=== PATIENT | male | born 1965 | race Caucasian/White ===

== ENCOUNTER 2020-09-22 08:01 | Day surgery (SDC) | payer OTHER ==
[2020-09-19 09:51] VITALS: BMI 34.2
[~2020-09-22 08:01] MED LIST: LACTATED RINGERS 1,000 ML IV SCH
[2020-09-22 08:21] VITALS: TEMP 97.7
[2020-09-22] MEDS ORDERED: PROPOFOL 10 MG/ML 20 ML VIAL IV ONE (09:09)
--- NOTE | 2020-09-22 09:42 | P.PCN ---
Date of Procedure: 09/22/20 Description of Procedure: BRIEF HISTORY: Patient is a 55-year-old male presenting for outpatient colonoscopy for a history of colon polyps. No family history of colon cancer. Last colonoscopy years ago. No change in bowel habits or blood per rectum. PROCEDURE PERFORMED: Colonoscopy with polypectomy. PREOPERATIVE DIAGNOSIS: Personal history of colon polyps, last colonoscopy 5 years ago. ESTIMATED BLOOD LOSS: Minimal. IV sedation per Anesthesia. PROCEDURE: After informed consent was obtained, the patient, was brought into the endoscopy unit. IV sedation was administered by Anesthesia under continuous monitoring. Digital rectal examination was normal. Initially the Olympus CF-190 flexible video colonoscope was then inserted in the rectum, gradually advanced into the cecum without any difficulty. Careful examination was performed as the scope was gradually being withdrawn. Ileocecal valve and the appendiceal orifice were visualized and appeared normal. Prep was excellent. Mucosa of the cecum, ascending colon, transverse colon, descending colon, sigmoid colon, and rectum appeared normal. 2 hyperplastic-appearing diminutive polyps measuring 1-2 mm in size removed from the rectum with cold forcep polypectomy. Retroflexion was performed in the rectum and no lesions were seen., Low-grade internal The patient tolerated the procedure well. IMPRESSION: 2 diminutive hyperplastic of biliary polyps removed from the rectum with cold forcep polypectomy. Otherwise, normal-appearing colon from rectum to cecum. RECOMMENDATIONS: Findings of this examination were discussed with the patient and his family. Okay to resume diet. Okay to resume medications. Await pathology from polypectomies. Given repeat colonoscopy in 7-10 years pending pathology from polypectomies.
[2020-09-22 10:03] VITALS: RESP 16
[2020-09-22 10:17] VITALS: BP 147/91; PULSE 88
[2020-09-22] MEDS ORDERED: ONDANSETRON 4 MG/2 ML VIAL IVP ONE (10:25)
== END 2020-09-22 10:25 | disposition home or self-care (01) ==
LOC: ORWHC2ENDO 08:01
PROVIDERS: ATTEND Internal Medicine
DX: Z12.11 Encounter for screening for malignant neoplasm of colon (principal); K62.1 Rectal polyp; E75.5 Other lipid storage disorders; Z86.010 Personal history of colon polyps; Z87.891 Personal history of nicotine dependence; Z98.890 Other specified postprocedural states; Z97.2 Presence of dental prosthetic device (complete) (partial); Z79.1 Long term (current) use of non-steroidal anti-inflammatories (NSAID); Z79.899 Other long term (current) drug therapy
CPT/HCPCS: 88305; 88342; 88341; 45380; J2704